=== PATIENT | female | born 1960 | race Caucasian/White ===

== ENCOUNTER 2017-05-07 10:44 | Outpatient (CLI) | payer BC | END 2017-05-07 10:45 | disposition home or self-care (01) | LOC: BICMAMMO 10:44 | PROVIDERS: ATTEND Family Medicine | DX: N63.10 Unspecified lump in the right breast, unspecified quadrant (principal); Z80.3 Family history of malignant neoplasm of breast | CPT/HCPCS: 77066; G0279 ==

== ENCOUNTER 2017-07-17 16:33 | Emergency (ER) | payer BC ==
--- NOTE | 2017-07-17 17:19 | RAD ---
PA AND LATERAL VIEWS CHEST: 07/17/17 HISTORY: Cough. FINDINGS: Comparison is made with the exam of 07/10/15. The heart size is normal. The aorta is tortuous. The lungs are well expanded without focal areas of c onsolidation, pneumothorax or pleural effusions. There are mild degenerative changes in the spine. IMPRESSION: No radiographic evidence of acute cardiopulmonary process. POS: [facility]
[2017-07-17 17:40] LABS: #Monocytes 0.3 thou/uL (0.11-0.59); #Neutrophils 2.4 thou/uL (1.40-6.50); %Basophils 0.7 % (0.0-1.0); %Eosinophils 0.4 % (0.0-10.0); %Lymphocytes 26.7 % (21.0-51.0); %Monocytes 8.3 % (0.0-10.0); %Neutrophils 63.8 % (42.0-75.0); Hemoglobin 14.9 g/dL (12.0-16.0); Mean Corpuscular HGB CONC 34.7 g/dL (32.0-36.0); Mean Corpuscular Hemoglobin 34.3 pg (27.0-31.0); Mean Corpuscular Volume 98.8 fl (81.0-99.0); Mean Platelet Volume 8.7 fL (7.4-10.4); Platelet Count 67 thou/uL (130-400); RBC Distribution Width 12.2 % (11.5-14.5); Red Blood Cell (RBC) Count 4.36 mill/uL (4.20-5.40); White Blood Cell (WBC) Count 3.8 thou/uL (4.8-10.8)
[2017-07-17 17:50] LABS: ALT (SGPT) 19 U/L (8-55); AST (SGOT) 26 U/L (5-34); Albumin 4.3 g/dL (3.5-5.0); Alkaline Phosphatase 157 U/L (40-150); Anion Gap 11 mmol/L (10-20); BUN (Urea Nitrogen) 11 mg/dL (9.8-20.1); Bilirubin, Total 1.2 mg/dL (0.2-1.2); Calc. Creatinine Clearance 0 mL/min (70-130); Calcium 9.5 mg/dL (7.8-10.44); Carbon Dioxide 25 mmol/L (22-29); Chloride 105 mmol/L (98-107); Estimated GFR-MDRD 65; Globulin 3.4 g/dL (2.4-3.5); Glucose 114 mg/dL (70-105); Potassium 4.1 mmol/L (3.5-5.1); Protein, Total 7.7 g/dL (6.0-8.3); Sodium 137 mmol/L (136-145)
[2017-07-17] MEDS ORDERED: Benzonatate 100 MG CAP ONE (18:52)
[2017-07-17] MEDS ORDERED: predniSONE 20 MG TAB ONE (19:23)
== END 2017-07-17 21:16 | disposition home or self-care (01) ==
LOC: ERS 16:33
DX: J44.1 Chronic obstructive pulmonary disease with (acute) exacerbation (principal); K21.9 Gastro-esophageal reflux disease without esophagitis; F41.9 Anxiety disorder, unspecified; F17.210 Nicotine dependence, cigarettes, uncomplicated
CPT/HCPCS: 36415; 71046; 80053; 85025; 87804; J7506; J7620

== ENCOUNTER 2017-09-25 07:52 | Outpatient (CLI) | payer BC | END 2017-09-25 07:53 | disposition home or self-care (01) | LOC: BICULT 07:52 | PROVIDERS: ATTEND Internal Medicine Gastroenterology | DX: K74.60 Unspecified cirrhosis of liver (principal); K92.1 Melena; Z86.19 Personal history of other infectious and parasitic diseases; D69.6 Thrombocytopenia, unspecified; A63.0 Anogenital (venereal) warts; I85.00 Esophageal varices without bleeding; Z90.49 Acquired absence of other specified parts of digestive tract; R16.1 Splenomegaly, not elsewhere classified | CPT/HCPCS: 76705 ==

== ENCOUNTER 2017-10-31 10:10 | Outpatient (CLI) | payer BC ==
[2017-10-31 11:33] LABS: Anion Gap 10 mmol/L (10-20); BUN (Urea Nitrogen) 16 mg/dL (9.8-20.1); Calc. Creatinine Clearance 0 mL/min (70-130); Calcium 9.4 mg/dL (7.8-10.44); Carbon Dioxide 27 mmol/L (22-29); Chloride 107 mmol/L (98-107); Estimated GFR-MDRD 68; Glucose 102 mg/dL (70-105); Potassium 4.2 mmol/L (3.5-5.1); Sodium 140 mmol/L (136-145)
[2017-10-31 12:15] LABS: #Basophils 0.1 thou/uL (0.0-0.2); #Eosinphils 0.1 thou/uL (0.0-0.7); #Lymphocytes 1.6 thou/uL (1.20-3.40); #Monocytes 0.5 thou/uL (0.11-0.59); #Neutrophils 2.7 thou/uL (1.40-6.50); %Basophils 1.3 % (0.0-1.0); %Eosinophils 2.3 % (0.0-10.0); %Neutrophils 54.3 % (42.0-75.0); Hemoglobin 15.6 g/dL (12.0-16.0); Large Platelets SLIGHT; MDiff Complete? YES; Mean Corpuscular HGB CONC 34.8 g/dL (32.0-36.0); Mean Corpuscular Hemoglobin 32.9 pg (27.0-31.0); Mean Corpuscular Volume 94.5 fL (78.0-98.0); PLT Morphology Comment PLT SLIGHTLY DEC; Platelet Count 99 thou/uL (130-400); RBC Distribution Width 12.2 % (11.5-14.5); Red Blood Cell (RBC) Count 4.73 mill/uL (4.20-5.40)
--- NOTE | 2017-10-31 13:07 | EKG ---
Test Reason : Blood Pressure : / mmHG Vent. Rate : 049 BPM Atrial Rate : 049 BPM P-R Int : 000 ms QRS Dur : 086 ms QT Int : 460 ms P-R-T Axes : 000 062 066 degrees QTc Int : 415 ms Marked sinus bradycardia short pr interval Abnormal ECG When compared with ECG of 14-JUL-2015 16:04, Vent. rate has decreased BY 32 BPM Confirmed by DANGELO DAVID, SRashmi ([id number]) on 10/31/2017 1:07:18 PM Referred By: FLORINDA Confirmed By:DR. Patrizia PIERSON MD
--- NOTE | 2017-10-31 14:00 | RAD ---
CHEST PA AND LATERAL TWO VIEWS: History: 57-year-old female with history of preoperative evaluation. Comparison: 07-17-17 FINDINGS: Heart size is within normal limits. Mild biapical pleural thickening. Minimal stable linear and chron ic changes. No confluent pneumonia, overt edema, or pleural effusion. IMPRESSION: Mild stable chronic changes. No acute intrathoracic disease. Atherosclerosis of the aorta. POS: [facility]
== END 2017-10-31 10:11 | disposition home or self-care (01) ==
LOC: LABBT 10:10
PROVIDERS: ATTEND Specialist
DX: Z01.818 Encounter for other preprocedural examination (principal); A63.0 Anogenital (venereal) warts; I70.0 Atherosclerosis of aorta
CPT/HCPCS: 71046; 80048; 85025; 93005; 93010

== ENCOUNTER 2017-11-04 05:48 | Day surgery (SDC) | payer BC ==
[2017-10-31 10:25] VITALS: BMI 26.2
[2017-11-04] MEDS ORDERED: CEFAZOLIN/Water 2 GM/20 ML SYRINGE ONE (06:16)
[2017-11-04] MEDS ORDERED: Ketorolac Tromethamine 30 MG/ML VIAL ONE (06:16)
[2017-11-04] MEDS ORDERED: Lidocaine 2% Jelly 5 ML TUBE ONE (06:55)
[2017-11-04] MEDS ORDERED: Bupivacaine/Epinephrine 0.25% 30 ML VIAL ONE ×2 (06:55→08:40)
[2017-11-04] MEDS ORDERED: Fentanyl 100 MCG/2 ML VIAL ONE (07:32)
[2017-11-04] MEDS ORDERED: Midazolam HCl 2 mg/2 ml Vial ONE (07:32)
[2017-11-04] MEDS ORDERED: Bacitracin Zinc Ointment 30 gm TUBE ONE (08:55)
--- NOTE | 2017-11-04 10:53 | OP ---
DATE OF PROCEDURE: 11/04/2017 PREOPERATIVE DIAGNOSIS: Anal condyloma, external hemorrhoids, perineal skin lesion. POSTOPERATIVE DIAGNOSIS: Anal condyloma, external hemorrhoids, perineal skin lesion. OPERATION PERFORMED: Full thickness excision of perineal skin lesion, excision of external hemorrhoi d x2, and excision of anal canal condyloma. SURGEON: Hugh Brown M.D. ANESTHESIA: General with laryngeal mask airway. INDICATIONS: The patient is a 57-year-old white female. She presents at this time for treatment of the above problems. DESCRIPTION OF PROCEDURE: Informed consent was obtained, and patient was taken to the operating room where general anesthesia was obtained with the patient in supine position. The patient was then raulito kaushik into dorsal lithotomy using candycane stirrup. Perianal area was prepped with Betadine, draped i n sterile fashion. Local anesthetic was infiltrated in a 4 quadrant intersphincteric fashion using 0 .25% Marcaine with epinephrine. A digital and visual inspection of the anus and rectum was carried out. The patient was noted to hav e tissue consistent with condyloma along the anterior and right lateral aspects of the anal canal at approximately the level of the dentate line. There were external hemorrhoids located around the exte rnal aspect of the anus a couple of locations. There was also an indurated and painful perineal lesi on primarily to the left of midline. Attention was turned first to the condyloma. Clusters of condyloma were identified at the 12 o'clock radian and at about the 10 o'clock radian. These were each lifted off the underlying tissue with morocho bmucosal injection of lidocaine with epinephrine. They were then excised in full thickness fashion a nd passed off the field. Hemostasis was obtained with electrocautery. The smoke evacuator was used during the use of cautery. The wound was then closed transversely using a running locking suture of 3-0 Vicryl. The second condyloma lesion was excised in a similar fashion and the right lateral aspec t. There was no evidence of condyloma anywhere posteriorly or on the left side. Two separate external hemorrhoids were excised. The posterior one of these was closed with 3-0 Vicry l sutures. The left lateral one was excised and cauterized, but not closed. Attention was then turned to the peritoneal lesion. This was identified, locally anesthetized, and e lliptically excised in a full thickness fashion and passed off the field. Hemostasis obtained with e lectrocautery. The wound was closed with a running suture of 3-0 Vicryl. Antibiotic ointment was pl aced externally. Gelfoam was placed internally. There were no complications. The patient tolerated the procedure well and was taken to recovery in stable condition.
[2017-11-04] MEDS ORDERED: PROPOFOL 200 MG/20 ML VIAL ONE (15:16)
[2017-11-04] MEDS ORDERED: Lidocaine 1% PF 5 ML VIAL ONE (15:16)
--- NOTE | 2017-11-07 10:19 | PQF ---
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 Please respond with missing information on query form or by adding an addendum to OP note. [ ] [ ] The perineal lesion was 1.0 cm and excised with 2 mm margins (total 1.4 cm) . Thanks, MWS Hugh Ashby The documentation in this patients record requires clarification to ensure coding compliance and accuracy. Check the appropriate box and include in your discharge summary. [ ] [ ] [ ] [ ] Please check this box if this does not apply to this patient [ ] Unable to determine [ ] Other diagnosis: Review the following information and exercise your independent professional judgment in responding to the clarification. Based upon the clinical findings, risk factors, and treatment, please clarify if you are treating one of the above probable or suspected diagnoses. Physician Signature: __MWS Date____8/7/18 Time 6 AM MTDD
--- NOTE | 2017-11-11 12:23 | PQF ---
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 Check the appropriate box and include in your discharge summary. [ ] [ ] [ ] [ ] Please check this box if this does not apply to this patient [ ] Unable to determine [ ] Other diagnosis: Review the following information and exercise your independent professional judgment in responding to the clarification. Based upon the clinical findings, risk factors, and treatment, please clarify if you are treating one of the above probable or suspected diagnoses. Physician Signature: Date Time MTDD
== END 2017-11-04 10:35 | disposition home or self-care (01) ==
LOC: SDC 05:48
PROVIDERS: ATTEND Specialist
PROC: 0DBQXZZ Excision of Anus, External Approach (ICD-10-PCS; principal; 2017-11-04)
PROC: 0HB9XZZ Excision of Perineum Skin, External Approach (ICD-10-PCS; principal; 2017-11-04)
PROC: 0DBQXZX Excision of Anus, External Approach, Diagnostic (ICD-10-PCS; principal; 2017-11-04)
DX: A63.0 Anogenital (venereal) warts (principal); L83 Acanthosis nigricans; K64.4 Residual hemorrhoidal skin tags; F41.9 Anxiety disorder, unspecified; J44.9 Chronic obstructive pulmonary disease, unspecified; K74.69 Other cirrhosis of liver; F17.210 Nicotine dependence, cigarettes, uncomplicated; Z79.899 Other long term (current) drug therapy; Z88.5 Allergy status to narcotic agent
CPT/HCPCS: 88305; 88341; 88342; J0131; J1885; J2001; J2250; J2704; J3010

== ENCOUNTER 2020-01-06 09:34 | Emergency (ER) | payer BC ==
[2020-01-06] MEDS ORDERED: Ketorolac Tromethamine 30 MG/ML VIAL ONE (09:48)
--- NOTE | 2020-01-06 11:00 | RAD ---
3 VIEWS LEFT ANKLE: Date: 01/06/2020 COMPARISON: None. HISTORY: Fall with ankle pain. FINDINGS: Three views of the left ankle show a small ossific fragment adjacent to the tip of the lateral malleo liam. This appears corticated and is likely a sequelae from a remote fracture. No obvious acute fractu re or dislocation seen. Mild lateral soft tissue swelling is seen. IMPRESSION: No evidence of acute osseous abnormality. POS: [facility]
--- NOTE | 2020-01-06 11:20 | RAD ---
4 VIEWS OF RIGHT KNEE: Date: 01/06/2020 COMPARISON: None. HISTORY: Fall with knee pain. FINDINGS: Four views of the right knee show a small avulsion fracture of the proximal aspect of the fibula at t he tibiofibular joint. No knee effusion is seen. No other fracture or dislocation is seen. IMPRESSION: Small avulsion fracture at the proximal tibiofibular joint and involving the proximal fibula. POS: [facility]
--- NOTE | 2020-01-06 11:21 | RAD ---
2 VIEWS RIGHT TIBIA AND FIBULA: Date: 01/06/2020 HISTORY: Fall at home with pain in the leg. FINDINGS: Two views of the right tibia/fibula show a small avulsion fracture along the proximal aspect of the f ibula at the proximal tibiofibular joint. No other fractures or dislocations are seen. No soft tissue swelling is seen. IMPRESSION: Small avulsion fracture at the proximal tibiofibular joint involving the proximal fibula. POS: [facility]
--- NOTE | 2020-01-06 11:22 | RAD ---
3 VIEWS LEFT FOOT: Date: 01/06/2020 COMPARISON: None. HISTORY: Left foot and calf pain after mechanical fall. FINDINGS: Three views of the left foot show no evidence of acute fracture or dislocation. No degenerative brunson es are seen. No focal soft tissue swelling is seen. IMPRESSION: No evidence of acute osseous abnormality. POS: [facility]
== END 2020-01-06 12:00 | disposition home or self-care (01) ==
LOC: ERS 09:34
DX: S82.831A Other fracture of upper and lower end of right fibula, initial encounter for closed fracture (principal); M25.572 Pain in left ankle and joints of left foot; K21.9 Gastro-esophageal reflux disease without esophagitis; J44.9 Chronic obstructive pulmonary disease, unspecified; B19.10 Unspecified viral hepatitis B without hepatic coma; F41.9 Anxiety disorder, unspecified; F17.210 Nicotine dependence, cigarettes, uncomplicated; W01.0XXA Fall on same level from slipping, tripping and stumbling without subsequent striking against object, initial encounter; Y92.096 Garden or yard of other non-institutional residence as the place of occurrence of the external cause
CPT/HCPCS: 96374; J1885

== ENCOUNTER 2020-11-28 11:07 | Emergency (ER) | payer BC, OTHER ==
[2020-11-28] MEDS ORDERED: Ondansetron PF 4 MG/2 ML Vial ONE (11:59)
[2020-11-28] MEDS ORDERED: Meclizine HCl 25 MG TAB ONE (11:59)
[2020-11-28 12:13] LABS: #Eosinphils 0.1 thou/uL (0.0-0.7); #Lymphocytes 0.7 thou/uL (1.20-3.40); #Monocytes 0.3 thou/uL (0.11-0.59); #Neutrophils 6.2 thou/uL (1.40-6.50); %Basophils 0.6 % (0.0-1.0); %Lymphocytes 9.8 % (21.0-51.0); %Monocytes 4.1 % (0.0-10.0); %Neutrophils 84.7 % (42.0-75.0); Hemoglobin 14.7 g/dL (12.0-16.0); Mean Corpuscular HGB CONC 34.4 g/dL (32.0-36.0); Mean Corpuscular Hemoglobin 33.2 pg (27.0-31.0); Mean Corpuscular Volume 96.4 fL (78.0-98.0); Mean Platelet Volume 8.2 fL (7.4-10.4); Platelet Count 120 thou/uL (130-400); RBC Distribution Width 12.1 % (11.5-14.5); Red Blood Cell (RBC) Count 4.43 mill/uL (4.20-5.40); White Blood Cell (WBC) Count 7.3 thou/uL (4.8-10.8)
[2020-11-28 12:34] LABS: ALT (SGPT) 20 U/L (8-55); AST (SGOT) 23 U/L (5-34); Albumin 4.6 g/dL (3.5-5.0); Alkaline Phosphatase 167 U/L (40-110); Anion Gap 13 mmol/L (10-20); BUN (Urea Nitrogen) 19 mg/dL (9.8-20.1); Bilirubin, Total 0.7 mg/dL (0.2-1.2); Calc. Creatinine Clearance 0 mL/min (70-130); Calcium 9.8 mg/dL (7.8-10.44); Carbon Dioxide 26 mmol/L (22-29); Chloride 105 mmol/L (98-107); Globulin 3.3 g/dL (2.4-3.5); Glucose 117 mg/dL (70-105); Protein, Total 7.9 g/dL (6.0-8.3); Sodium 139 mmol/L (136-145)
== END 2020-11-28 15:10 | disposition home or self-care (01) ==
LOC: ERS 11:07
DX: R42 Dizziness and giddiness (principal); S02.31XA Fracture of orbital floor, right side, initial encounter for closed fracture; S02.40CA Maxillary fracture, right side, initial encounter for closed fracture; R11.2 Nausea with vomiting, unspecified; K21.9 Gastro-esophageal reflux disease without esophagitis; J44.9 Chronic obstructive pulmonary disease, unspecified; F17.210 Nicotine dependence, cigarettes, uncomplicated; W01.198A Fall on same level from slipping, tripping and stumbling with subsequent striking against other object, initial encounter
CPT/HCPCS: 36415; 70450; 70486; 80053; 80307; 85025; 93005; 96374; J2405

== ENCOUNTER 2023-04-19 20:09 | Emergency (ER) | payer BC ==
[2023-04-19 21:57] LABS: #Eosinphils 0.1 thou/uL (0.0-0.7); #Monocytes 0.4 thou/uL (0.11-0.59); #Neutrophils 3.8 thou/uL (1.40-6.50); %Basophils 0.7 % (0.0-1.0); %Eosinophils 0.8 % (0.0-10.0); %Lymphocytes 29.2 % (21.0-51.0); %Monocytes 6.4 % (0.0-10.0); %Neutrophils 62.7 % (42.0-75.0); Hematocrit 43.4 % (36.0-47.0); Hemoglobin 15.1 g/dL (12.0-16.0); Mean Corpuscular HGB CONC 34.8 g/dL (32.0-36.0); Mean Corpuscular Hemoglobin 32.8 pg (27.0-31.0); Mean Corpuscular Volume 94.3 fl (78.0-98.0); Platelet Count 133 10x3/uL (130-400); RBC Distribution Width 12.7 % (11.5-14.5); White Blood Cell (WBC) Count 6.1 10x3/uL (4.8-10.8)
[2023-04-19 22:18] LABS: ALT (SGPT) 35 U/L (8-55); AST (SGOT) 32 U/L (5-34); Albumin 4.4 g/dL (3.4-4.8); Alkaline Phosphatase 122 U/L (40-110); Anion Gap 16 mmol/L (10-20); BUN (Urea Nitrogen) 8 mg/dL (9.8-20.1); Calc. Creatinine Clearance 0 mL/min (70-130); Calcium 9.1 mg/dL (7.8-10.44); Carbon Dioxide 19 mmol/L (23-31); Chloride 103 mmol/L (98-107); Estimated GFR 93; Globulin 3.3 g/dL (2.4-3.5); Glucose 124 mg/dL (80-115); Protein, Total 7.7 g/dL (5.8-8.1); Sodium 135 mmol/L (136-145)
[2023-04-19] MEDS ORDERED: Ondansetron ODT 4 MG TAB ONE ×2 (22:55→23:02)
[2023-04-19] MEDS ORDERED: traMADol HCl 50 MG TAB ONE (22:55)
== END 2023-04-19 22:09 | disposition home or self-care (01) ==
LOC: ERS 20:09
DX: S09.90XA Unspecified injury of head, initial encounter (principal); M25.422 Effusion, left elbow; K21.9 Gastro-esophageal reflux disease without esophagitis; J44.9 Chronic obstructive pulmonary disease, unspecified; F17.210 Nicotine dependence, cigarettes, uncomplicated; Z79.899 Other long term (current) drug therapy; W22.8XXA Striking against or struck by other objects, initial encounter
CPT/HCPCS: 36415; 70450; 80053; 85025; Q0162

== ENCOUNTER 2023-10-08 16:32 | Emergency (ER) | payer BC ==
[2023-10-08 17:07] LABS: #Basophils Less than 0.03 10x3/uL (0.0-0.2); #Eosinphils Less than 0.03 10x3/uL (0.0-0.7); %Basophils 0.7 % (0.0-1.0); %Lymphocytes 5.9 % (21.0-51.0); %Monocytes 3.6 % (0.0-10.0); %Neutrophils 88.5 % (42.0-75.0); Hematocrit 25.2 % (36.0-47.0); Hemoglobin 8.9 g/dL (12.0-16.0); Mean Corpuscular HGB CONC 35.3 g/dL (32.0-36.0); Mean Corpuscular Hemoglobin 34.9 pg (27.0-31.0); Mean Corpuscular Volume 98.8 fL (78.0-98.0); Platelet Count 187 10x3/uL (130-400); RBC Distribution Width 18.1 % (11.5-14.5); Red Blood Cell (RBC) Count 2.55 mill/uL (4.20-5.40)
[2023-10-08 17:34] LABS: ALT (SGPT) 22 U/L (8-55); AST (SGOT) 27 U/L (5-34); Alkaline Phosphatase 100 U/L (40-110); Anion Gap 11 mmol/L (10-20); BUN (Urea Nitrogen) 7 mg/dL (9.8-20.1); Bilirubin, Total 1.1 mg/dL (0.2-1.2); Calc. Creatinine Clearance 0 mL/min (70-130); Calcium 9.2 mg/dL (7.8-10.44); Carbon Dioxide 23 mmol/L (23-31); Chloride 106 mmol/L (98-107); Estimated GFR 82; Glucose 148 mg/dL (80-115); Potassium 3.3 mmol/L (3.5-5.1); Sodium 137 mmol/L (136-145)
== END 2023-10-08 18:10 | disposition home or self-care (01) ==
LOC: ERS 16:32
DX: D61.818 Other pancytopenia (principal); C50.919 Malignant neoplasm of unspecified site of unspecified female breast; F17.210 Nicotine dependence, cigarettes, uncomplicated; J44.9 Chronic obstructive pulmonary disease, unspecified
CPT/HCPCS: 36415; 80053; 85025; 86850; 86900; 86901; 99283

== ENCOUNTER 2023-12-05 08:43 | Outpatient (CLI) | payer BC ==
[2023-12-05] MEDS ORDERED: Iopamidol 370 76% 100 ML VIAL ONE (14:03)
== END 2023-12-05 08:44 | disposition home or self-care (01) ==
LOC: BICCT 08:43
PROVIDERS: ATTEND Radiology Radiation Oncology
DX: C50.512 Malignant neoplasm of lower-outer quadrant of left female breast (principal); E27.8 Other specified disorders of adrenal gland; K74.60 Unspecified cirrhosis of liver
CPT/HCPCS: 71260; Q9967

== ENCOUNTER 2024-03-15 12:54 | Outpatient (CLI) | payer BC ==
[~2024-03-15 12:54] MED LIST: Iopamidol 370 76% 100 ML VIAL ONE
== END 2024-03-15 12:55 | disposition home or self-care (01) ==
LOC: CT 12:54
PROVIDERS: ATTEND Radiology Radiation Oncology
DX: C50.912 Malignant neoplasm of unspecified site of left female breast (principal); E27.8 Other specified disorders of adrenal gland; Z90.12 Acquired absence of left breast and nipple
CPT/HCPCS: 71260; 82565; Q9967

== ENCOUNTER 2024-05-24 15:21 | Emergency (ER) | payer BC ==
[2024-05-24 18:44] LABS: ALT (SGPT) 13 U/L (Less than 34); AST (SGOT) 31 U/L (11-34); Albumin 4.2 g/dL (3.1-4.5); Alkaline Phosphatase 107 U/L (40-110); Anion Gap 15 mmol/L (10-20); BUN (Urea Nitrogen) 18 mg/dL (9.8-20.1); Bilirubin, Total 0.3 mg/dL (0.3-1.2); Calc. Creatinine Clearance 0 mL/min (70-130); Calcium 9.3 mg/dL (7.8-10.44); Carbon Dioxide 24 mmol/L (23-31); Chloride 102 mmol/L (98-107); Estimated GFR 69; Globulin 3.2 g/dL (2.4-3.5); Glucose 84 mg/dL (80-115); Potassium 4.1 mmol/L (3.5-5.1); Protein, Total 7.4 g/dL (5.8-8.1); Sodium 137 mmol/L (136-145)
[2024-05-24 18:47] LABS: Troponin I Less than 0.010 ng/mL (< 0.028)
[2024-05-24] MEDS ORDERED: HYDROcodone/Acetaminophen 5/325 mg Tablet ONE (20:23)
[2024-05-24] MEDS ORDERED: Dexamethasone 4 MG TAB ONE (20:27)
[2024-05-24 20:51] LABS: Troponin I Less than 0.010 ng/mL (< 0.028)
== END 2024-05-24 20:32 | disposition home or self-care (01) ==
LOC: ERS 15:21
DX: M94.0 Chondrocostal junction syndrome [Tietze] (principal); Z53.29 Procedure and treatment not carried out because of patient's decision for other reasons
CPT/HCPCS: 36415; 71045; 80053; 84484; 93005; J8540

== ENCOUNTER 2024-11-23 16:31 | Emergency (ER) | payer BC ==
[2024-11-23 17:30] LABS: Bacteria/HPF None Seen HPF (None Seen); CAUTI Indications for Culture Dysuria,urgency,freq; Glucose, Urine (Dipstick) Normal (Negative); Leukocyte Negative Leu/uL (Negative); Protein, Urine (Dipstick) Negative (Neg-Trace); RBC/HPF 0-3 HPF (0-3); Specific Gravity, Urine 1.005 (1.002-1.036); WBC/HPF 0-3 HPF (0-3)
[2024-11-23 17:35] LABS: Urine Culture Reflex No No
[2024-11-23 18:43] LABS: #Basophils 0.04 10x3/uL (0.0-0.2); #Eosinophils 0.06 10x3/uL (0.0-0.7); #Monocytes 0.73 10x3/uL (0.11-0.59); #Neutrophils 5.14 10x3/uL (1.40-6.50); %Basophils 0.6 % (0.0-1.0); %Eosinophils 0.9 % (0.0-10.0); %Lymphocytes 14.8 % (21.0-51.0); %Monocytes 10.4 % (0.0-10.0); %Neutrophils 73.0 % (42.0-75.0); Hematocrit 41.4 % (36.0-47.0); Hemoglobin 13.7 g/dL (12.0-16.0); Mean Corpuscular Hemoglobin 32.2 pg (27.0-31.0); Mean Corpuscular Volume 97.2 fL (78.0-98.0); Platelet Count 172 10x3/uL (130-400); Red Blood Cell (RBC) Count 4.26 mill/uL (4.20-5.40); White Blood Cell (WBC) Count 7.03 10x3/uL (4.8-10.8)
[2024-11-23] MEDS ORDERED: Ibuprofen 200 MG TAB ONE (19:06)
[2024-11-23] MEDS ORDERED: HYDROcodone/Acetaminophen 5/325 mg Tablet ONE (19:06)
[2024-11-23 19:10] LABS: ALT (SGPT) 16 U/L (Less than 34); AST (SGOT) 30 U/L (11-34); Albumin 4.5 g/dL (3.1-4.5); Alkaline Phosphatase 137 U/L (40-110); Anion Gap 14 mmol/L (10-20); BUN (Urea Nitrogen) 10 mg/dL (9.8-20.1); Bilirubin, Total 1.1 mg/dL (0.3-1.2); Calc. Creatinine Clearance 0 mL/min (70-130); Calcium 9.6 mg/dL (7.8-10.44); Carbon Dioxide 28 mmol/L (23-31); Chloride 102 mmol/L (98-107); Globulin 3.4 g/dL (2.4-3.5); Glucose 89 mg/dL (80-115); Potassium 4.7 mmol/L (3.5-5.1); Sodium 139 mmol/L (136-145)
== END 2024-11-23 19:17 | disposition home or self-care (01) ==
LOC: ERS 16:31
DX: S00.03XA Contusion of scalp, initial encounter (principal); W18.00XA Striking against unspecified object with subsequent fall, initial encounter
CPT/HCPCS: 36415; 70450; 72125; 80053; 81001; 85025; 93005